=== PATIENT | female | born 1990 | race Caucasian/White ===

== ENCOUNTER 2017-12-15 09:51 | Emergency (ER) | payer OTHER ==
[~2017-12-15] VITALS: Ht 167.6 cm; Wt 85.3 kg
[~2017-12-15 09:51] MED LIST: BACTRIM DS TAB1 EACH PO; NORCO 5-325 TA1 EACH PO
[2017-12-15] MEDS ORDERED: PNV PRENATAL P1 EACH PO (10:09)
== END 2017-12-15 10:13 | disposition home or self-care (01) ==
LOC: ED 09:51
DX: L02.31 Cutaneous abscess of buttock (principal)

== ENCOUNTER 2018-11-10 12:50 | Emergency (ER) | payer OTHER ==
[~2018-11-10] VITALS: Ht 167.6 cm; Wt 85.3 kg
[~2018-11-10 12:50] MED LIST changes: +PNV PRENATAL P1 EACH PO
== END 2018-11-10 13:45 | disposition home or self-care (01) ==
LOC: ED 12:50
DX: B34.9 Viral infection, unspecified (principal); Z87.891 Personal history of nicotine dependence
CPT/HCPCS: 99282

== ENCOUNTER 2019-06-10 21:33 | Emergency (ER) | payer OTHER ==
[~2019-06-10] VITALS: Ht 167.6 cm; Wt 85.3 kg
[2019-06-11] MEDS ORDERED: NORCO 5-325 TA1 EACH PO (01:37)
== END 2019-06-11 01:52 | disposition home or self-care (01) ==
LOC: ED 21:33
DX: N83.8 Other noninflammatory disorders of ovary, fallopian tube and broad ligament (principal)
CPT/HCPCS: 74176; 76830; 76856; 80053; 81001; 83690; 84703; 85025; 87491; 87591; 96374; 96375; 99284-25; J1885; J2270; J2405

== ENCOUNTER 2020-05-02 20:45 | Emergency (ER) | payer OTHER ==
[~2020-05-02] VITALS: Ht 167.6 cm; Wt 108.4 kg
--- OUTSIDE RECORDS SUMMARY | ~2020-05-02 | XMS | Clinical Summary ---
Demographics + + + | Address | [address] [place] [address] | | | [place] [address] | + + + | Home Phone | | + + + | Preferred Language | Unknown | + + + | Marital Status | | + + + | Methodist Affiliation | Unknown | + + + | Race | White | + + + | Ethnic Group | Not or | + + + Author + + + | Author | [facility] | | | and [place] | + + + | Organization | [facility] | | | and [place] | + + + | Address | Unknown | + + + | Phone | Unavailable | + + + Support + + +---------+ + | Name | Relationship | Address | Phone | + + +---------+ + | Jimmy Hernandez | ECON | Unknown | | + + +---------+ + Care Team Providers + +------+ + | Care Heel Cutter Name | Role | Phone | + +------+ + | Mirna Espinoza | PCP | | + +------+ + Allergies No Known Allergies Medications No known medications Active Problems Not on file Family History + +------+ + + | Relation | Name | Status | Comments | + +------+ + + | Father | | Alive | | + +------+ + + | Mother | | | | + +------+ + + Social History + +-------+ +--------+------+ | Tobacco Use | Types | Packs/Day | Years | Date | | | | | Used | | + +-------+ +--------+------+ | Never Smoker | | | | | + +-------+ +--------+------+ + +---+---+---+ | Smokeless Tobacco: | | | | | Never Used | | | | + +---+---+---+ + + +---------+ + | Alcohol Use | Drinks/Week | oz/Week | Comments | + + +---------+ + | Not Currently | | | | + + +---------+ + + + + | Sex Assigned at | Date Recorded | | | | + + + | Not on file | | + + + Last Filed Vital Signs + + + + + | Vital Sign | Reading | Time Taken | Comments | + + + + + | Blood Pressure | 110/76 | 09/23/2019 9:23 AM | | | | | PST | | + + + + + | Pulse | 76 | 09/23/2019 9:23 AM | | | | | PST | | + + + + + | Temperature | - | - | | + + + + + | Respiratory Rate | 16 | 09/23/2019 9:23 AM | | | | | PST | | + + + + + | Oxygen Saturation | - | - | | + + + + + | Inhaled Oxygen | - | - | | | Concentration | | | | + + + + + | Weight | 102.5 kg (226 lb) | 09/23/2019 9:23 AM | | | | | PST | | + + + + + | Height | 167.6 cm (5' 6") | 09/23/2019 9:23 AM | | | | | PST | | + + + + + | Body Mass Index | 36.48 | 09/23/2019 9:23 AM | | | | | PST | | + + + + + Plan of Treatment + + + + + | Health Maintenance | Due Date | Last | Comments | | | | Done | | + + + + + | Hepatitis C | | | | | Screening | 2 | | | + + + + + | Cervical Cancer | | | | | Screening (Pap) | 3 | | | + + + + + | Vaccine: Influenza | | 06/23/20 | | | (#1) | 0 | 19, | | | | | 05/12/20 | | | | | 18 | | + + + + + | Vaccine: | | 03/17/20 | | | Dtap/Tdap/Td (3 - | 8 | 18, | | | Td) | | 01/04/20 | | | | | 14 | | + + + + + Results Not on filefrom Last 3 Months Insurance + +--------+ +--------+ +---------+--------+ | Payer | Benefi | Subscriber | Effect | Phone | Address | Type | | | t Plan | ID | leonie | | | | | | / | | Dates | | | | | | Group | | | | | | + +--------+ +--------+ +---------+--------+ | [place] | MEDICA | [id number] | | [phone] | | [place] | | [place] | | 020-Pr | 2 | | id | | | PLUS | | esent | | | | + +--------+ +--------+ +---------+--------+ + +--------+ +--------+ + + | Guarantor Name | Accoun | Relation to | Date | Phone | Billing Address | | | t Type | Patient | of | | | | | | | | | | + +--------+ +--------+ + + | Nathalia Hernandez | Person | Self | [birth year] | [address] [facility] | | | al/Fam | | 1990 | [id number] | [place] | | | candie | | | 5 (Home) | [phone] | + +--------+ +--------+ + + | Nathalia Hernandez | Person | Self | [birth year] | [address] [address] [place] | | | al/Fam | | 1990 | | [place] | | | candie | | | 5 (Home) | [phone] | + +--------+ +--------+ + + Advance Directives + + + + + | Type | Date Recorded | Patient | Explanation | | | | Valet Manager | | + + + + + | Power of | | | | | Ripsaw Operator | | | | + + + + + | Advance | | | | | Directive | | | | + + + + +
--- OUTSIDE RECORDS SUMMARY | ~2020-05-02 | XMS | Encounter Summary ---
Demographics + + + | Address | [address] [place] [address] | | | [place] [address] | + + + | Home Phone | | + + + | Preferred Language | Unknown | + + + | Marital Status | | + + + | Voodoo Affiliation | Unknown | + + + | Race | White | + + + | Ethnic Group | Not or | + + + Author + + + | Author | [facility] | | | and [place] | + + + | Organization | [facility] | | | and [...] Team Providers + +------+ + | Care It Specialist Name | Role | Phone | + +------+ + | Mirna Espinoza | PCP | | + +------+ + Reason for Visit Evaluate & Treat (Routine) + +--------+ + + + + | Status | Reason | Specialty | Diagnoses / | Referred By | Referred To | | | | | Procedures | Contact | Contact | + +--------+ + + + + | Authorized | | Colon and | Diagnoses | Nne[facility], | [facility] | | | | Rectal | Anal | Bj Metcalf, | Surgery [address] | | | | Surgery / | abscess | [address] | | | | General | | [address] | [address] | | | | Surgery | | [place], | [place], [place] | | | | | | [place] | [address] | | | | | | [address] | Phone: | | | | | | Phone: | [phone] | | | | | | [phone] | Fax: | | | | | | Fax: | [phone] | | | | | | [phone] | | + +--------+ + + + + Encounter Details +--------+---------+ + + + | Date | Type | Department | Care Team | Description | +--------+---------+ + + + | 09/23/ | Office | [facility] | Alec Alejandro, | Abscess of buttock | | 2020 | Visit | GENERAL SURGERY [address] | [address] | (Primary Dx) | | | | [address] | [address] | | | | | [place], [place] | [place] [address] | | | | | [address] | [phone] | | | | | [phone] | | | +--------+---------+ + + + Social History + +-------+ +--------+------+ [...] on file | | + + + documented as of this encounter Last Filed Vital Signs + + + [...] | | + + + + + documented in this encounter Progress Notes Alec Alejandro MD - 09/23/2019 9:30 AM PSTFormatting of this note might be different f rom the original. Service: Colorectal Surgery History & Physical ID: Nathalia Hernandez; DATE OF VISIT: 09/23/2019 History Obtained From: History obtained from chart review and the patient. CHIEF COMPLAINT: New patient presents for consultation regarding perianal abscess HISTORY OF PRESENT ILLNESS The patient is a 28 y.o. female who presents with history of Botox Injection with the hydro gel. She had that done twice. 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 And the had the cosmetic injections in multiple areas around the buttock region. This was about 2 years ago. She then developed an infection while she was in [place] and was admitted to the hospital and was given antibiotics. Problem seemed to regress at that time but then years later she developed multiple abscesses that required incision and drainage twice. She is here today to have this condition evaluated. She currently does not have any active inf ection or abscess or swelling or pain. Supervisor Customer Complaint Service needed: no Last colonoscopy: no Rectal Bleeding:no Bleeding bright red or dark red: no Blood on Toilet Paper: no Blood in Toilet Water: no Feel rectum is falling out of anus: no Does rectum go back in spontaneously: no Have to push the rectum back in manually: no Ever unable to push rectum back in: no Severe pain around the anus: no Feel a ripping at the anus with bowel movements: no Have itching/burning at the anus: no Ever have anal warts: no Have drainage from the anus: yes Incontinent to solid stool: no Incontinent to liquid stool: no Incontinent to gas: no trauma that required stitches: no Abdominal pain or cramps: no Family member with colon cancer at age less than 50: no Family member with colon polyps: no Family member with more than 10 colon polyps: no Need antibiotics prior to dental procedure: no Active comorbid conditions include: - Additional Diagnosis: Abscess of buttock REVIEW OF SYSTEMS Review of Systems Constitutional: Negative. HENT: Negative. Eyes: Negative. Respiratory: Negative. Cardiovascular: Negative. Gastrointestinal: Negative. Genitourinary: Negative. Musculoskeletal: Negative. Skin: Negative. Neurological: Negative. Psychiatric/Behavioral: Negative. No past medical history on file. No past surgical history on file. Allergies not on file (Not in a hospital admission) No family history on file. Social History Tobacco Use Smoking Status Not on file Social History Substance and Sexual Activity Alcohol Use Not on file PHYSICAL EXAM BP 110/76 | Pulse 76 | Resp 16 | Ht 1.676 m (5' 6") | Wt 102.5 kg (226 lb) | BMI 36.48 kg/m Wt. Admission: Wt. Current: Body mass index is 36.48 kg/m. Physical Exam Vitals signs and nursing note reviewed. HENT: Head: Atraumatic. Mouth/Throat: Mouth: Mucous membranes are moist. Eyes: Pupils: Pupils are equal, round, and reactive to light. Neck: Musculoskeletal: Neck supple. Cardiovascular: Rate and Rhythm: Normal rate. Pulmonary: Effort: Pulmonary effort is normal. Abdominal: General: Abdomen is flat. Palpations: Abdomen is soft. Skin: General: Skin is warm. Neurological: Mental Status: She is alert and oriented to person, place, and time. Psychiatric: Mood and Affect: Mood normal. Labs: No results for input(s): WBC, HGB, HCT, PLT, MCV in the last 72 hours. Invalid input(s): BANDSPCT No results for input(s): NA, K, CL, CO2, BUN, CREA, CALCIUM, MG, PHOS in the last 72 hours. ASSESSMENT & PLAN this is a very pleasant 28-year-old lady who presents with intermittent buttock abscesses follow when cosmetic Botox injections she had about 2 years ago. At this point there is no palpable or visible abscess or fistula. I advised the patient to contact me if she develop s them where we will give her antibiotics and give her a clinic visit for better evaluation. No surgical intervention at this point.. Alec Alejandro MD 9:18 AM; 09/23/2019 cc: CINDY Mead documented in this encounter Plan of Treatment Not on filedocumented as of this encounter Visit Diagnoses + + | Diagnosis | + + | Abscess of buttock - Primary Cellulitis and abscess of buttock | + + documented in this encounter
[2020-05-02] MEDS ORDERED: PYRIDIUM200 MG PO (21:49)
[2020-05-02] MEDS ORDERED: KEFLEX500 MG PO (21:49)
== END 2020-05-02 22:12 | disposition home or self-care (01) ==
LOC: ED 20:45
DX: N30.91 Cystitis, unspecified with hematuria (principal)
CPT/HCPCS: 81001; 84703; 99283

== ENCOUNTER 2022-01-12 19:11 | Emergency (ER) | payer OTHER ==
[~2022-01-12] VITALS: Ht 167.6 cm; Wt 108.0 kg
[~2022-01-12 19:11] MED LIST changes: +KEFLEX500 MG PO; +PYRIDIUM200 MG PO
[2022-01-12] MEDS ORDERED: ULTRAM50 MG PO (22:25)
== END 2022-01-12 23:08 | disposition home or self-care (01) ==
LOC: ED 19:11
DX: R10.31 Right lower quadrant pain (principal)
CPT/HCPCS: 36415; 74177; 80048; 81001; 84703; 85025; 99284-25; J1885; Q9967

== ENCOUNTER 2022-07-10 12:36 | Emergency (ER) | payer OTHER ==
[~2022-07-10] VITALS: Ht 167.6 cm; Wt 86.6 kg
[~2022-07-10 12:36] MED LIST changes: +ULTRAM50 MG PO
[2022-07-10] MEDS ORDERED: PRENATABS FA T1 EACH PO (14:07)
== END 2022-07-10 16:37 | disposition home or self-care (01) ==
LOC: ED 12:36
DX: O20.9 Hemorrhage in early pregnancy, unspecified (principal); O99.891 Other specified diseases and conditions complicating pregnancy; R51.9 Headache, unspecified; Z3A.08 8 weeks gestation of pregnancy
CPT/HCPCS: 36415; 76801; 76817; 84702; 84703; 99284-25

== ENCOUNTER 2022-07-12 18:30 | Emergency (ER) | payer OTHER ==
[~2022-07-12] VITALS: Ht 167.6 cm; Wt 86.2 kg
[~2022-07-12 18:30] MED LIST changes: +PRENATABS FA T1 EACH PO
--- OUTSIDE RECORDS SUMMARY | 2022-07-12 18:34 | XMS ---
PreManage Notification: MICHELLE WONG Security Fire Protection Equipment Technician Events No recent Security Events currently on file CRITERIA MET - [facility] - 2 Visits in 30 Days CARE PROVIDERS There are no care providers on record at this time. Brendan has no Care Guidelines for this patient. Noah VISIT COUNT (12 MO.) 3 [facility] TOTAL 3 NOTE: Visits indicate total known visits. ED/C VISIT TRACKING (12 MO.) [facility] COMPLAINT: - VAGINAL BLEEDING 5-9 WK 07/10/2022 12:37 [facility] [place] TYPE: Emergency COMPLAINT: - VAGINAL BLEEDING 01/12/2022 19:12 [facility] [place] TYPE: Emergency COMPLAINT: - ABD PAIN DIAGNOSES: - Right lower quadrant pain INPATIENT VISIT TRACKING (12 MO.) No inpatient visits to display in this time frame [email or web address]
[2022-07-12] MEDS ORDERED: ONDANSETRON ODT8 MG PO (21:21)
[2022-07-12] MEDS ORDERED: HYDROCODON-ACE1 EA10 PO (21:21)
== END 2022-07-12 21:55 | disposition home or self-care (01) ==
LOC: ED 18:30
DX: O03.9 Complete or unspecified spontaneous abortion without complication (principal)
CPT/HCPCS: 36415; 76801; 76817; 80053; 84702; 85025; 96374; 96375; 96376; 99284-25; A9270; J1790; J2270; J2405